=== PATIENT | female | born 1975 | race Caucasian/White ===

== ENCOUNTER 2022-06-09 06:06 | Day surgery (SDC) | payer OTHER, SELFPAY ==
[2022-06-09] VITALS (13 sets, daily range): BP systolic 111–165; BP diastolic 87–98; PULSE 68–83; RESP 14–18; TEMP 36.1–36.6; O2SAT 91–100
[2022-06-09] MEDS: gabapentin 300 mg Capsule PO (06:30)
[2022-06-09] MEDS: CELEcoxib 200 mg Capsule 400 MG PO (06:30)
[2022-06-09] MEDS: sodium chloride 0.9% 1,000 ML 30 ML IV (06:31)
[2022-06-09] MEDS: phenazopyridine 100 mg Tablet 200 MG PO (06:31)
[2022-06-09] MEDS: scopolamine 1.5 Patch 1 PATCH TRANSDERMA (06:31)
--- NOTE | 2022-06-09 06:37 | P.ANESASSM_ITS ---
Pre-Anesthetic Assessment Height/Weight: Height 1.6 m Weight 89.358 kg Temp Pulse Resp BP Pulse Ox O2 Del Method 97.9 F 83 18 165/96 96 06/09/22 06:22 06/09/22 06:22 06/09/22 06:22 06/09/22 06:22 06/09/22 06:22 06/09/22 06:22 Preop Diagnosis: left ovarian cyst Operation Date: 06/09/22 07:00 Proposed Procedures p Laparoscopic cystectomy 78413, possible left salpingo-oophorectomy 42843, possible right salpingectomy N83.8(Not Applicable) - Soco Forbes MD s Laparoscopic Salpingo Oophorectomy(Left) - Soco Forbes MD s Possible Right Laparoscopic Salpingectomy(Right) - Soco Forbes MD Familial anesthetic complications: None Was Beta Gaby taken within 24 hours: N/A Was Clonidine taken within 24 hours: N/A Last intake: Intake Last Liquid Date 06/08/22 Last Liquid Time 23:59 Last Solid Date 06/08/22 Last Solid Time 23:59 Social Alcohol (Social) and No tobacco Exam alert, oriented x 3, clear to auscultation bilaterally and regular rate & rhythm Airway Submandibular: within normal limits Cervical ROM: within normal limits Mallampati: Class III Dentition: full History/ROS No significant history except as noted and No significant complaints Pulmonary None reported CV/HEM None reported None reported Hepatic None reported GI None reported Metabolic Morbid Obesity and Thyroid Disease [facility] [place] Lupus Neuropsych Neuropathy Anesthetic Plan ASA status: 2 Anesthesia: Anesthesia Evaluation and General Risk of > 500 ml blood loss (7ml/kg in children): No Medications/Allergies Home Medications Medication Instructions Recorded Confirmed Last Taken Type losartan 25 mg tablet 25 mg PO DAILY 12/13/21 06/06/22 06/08/22 History multivitamin 1 tab PO DAILY 12/13/21 06/06/22 06/05/22 History hydroxychloroquine 200 mg tablet 200 mg PO BID #60 tabs 03/14/22 06/06/22 06/08/22 Rx hydrocodone 2.5 mg-acetaminophen 1 tab PO BID PRN Pain 05/30/22 06/06/22 Unknown History 325 mg tablet hydrocodone 5 mg-acetaminophen 325 1 tab PO Q4H #30 tabs 06/09/22 Unknown Rx mg tablet Allergies Allergy/AdvReac Type Severity Reaction Status Date / Time Penicillins Allergy Severe anaphlaxsis Verified 06/06/22 11:36 amoxicillin Allergy Unknown Verified 06/06/22 11:36 Sulfa (Sulfonamide Allergy ALGY-Rash Verified 06/06/22 11:36 Antibiotics) flu shot Allergy Intermediate hives Uncoded 05/30/22 09:46 Current Medications Generic Name Dose Route Start Last Admin Trade Name Tristan PRN Reason Stop Dose Admin Sodium Chloride 1,000 mls @ 30 mls/hr 06/09/22 06:15 06/09/22 06:31 Sodium Chloride 0.9% IV 06/10/22 06:14 30 mls/hr .Q24H DANIELLE Administration PFSH Anesthesia Medical History (Updated 05/31/22 @ 17:00 by Soco Forbes MD) Migraines Pain in joints Surgical History (Updated 05/31/22 @ 17:00 by Soco Forbes MD) History of hysterectomy History of tonsillectomy and adenoidectomy Family History Other Hypertension Denies family history of Colon cancer Ovarian cancer Diabetes Heart disease Hypercholesteremia Breast cancer Uterine cancer Thyroid disease Stroke Data Anesthesia Cardiac Studies: No Data to Display
--- NOTE | 2022-06-09 07:13 | W.PM.OPSUD ---
Surgery/Procedure H&P Update DATE OF PROCEDURE: June 09, 2022 DATE H&P PERFORMED: 05/30/22 H&P UPDATE INFORMATION: I have reviewed H&P completed within last 30 days, I have examined patient prior to procedure and No changes to prior documentation PREOP DIAGNOSIS: left ovarian cyst PLANNED PROCEDURE: Operation Date: 06/09/22 07:00 Proposed Procedures p Laparoscopic cystectomy 90249, possible left salpingo-oophorectomy 28935, possible right salpingectomy N83.8(Not Applicable) - Soco Forbes MD s Laparoscopic Salpingo Oophorectomy(Left) - Soco Forbes MD s Possible Right Laparoscopic Salpingectomy(Right) - Soco Forbes MD
[2022-06-09] MEDS: acetaminophen 1,000 MG/100 ML PIGGYBACK 400 MG IV (07:18)
[2022-06-09] MEDS: ceFAZolin 2,000 MG in sodium chloride 0.9% (plus) 50 ML 100 MG IV (07:19)
--- NOTE | 2022-06-09 09:14 | P.OP_ITS ---
Operative Report Date of procedure: June 09, 2022 Pre-op diagnosis: Preop Diagnosis left ovarian cyst Post-op diagnosis: same Post-op findings: medium sized left ovarian cyst. Fimbria only remaining after previous tubal. fimbria removed Procedure done: laparoscopic removal of left ovary. bilateral fimbriectomy Specimens removed/disposition: left ovary and bilateral fimbria to pathology Surgeon: Soco Forbes Anesthesia: General Estimated blood loss (mL): 5 IV fluids (mL): 900 Urine output (mL): 350 Complications: endo bag broke during removal Condition: stable Disposition: PACU Procedure: The patient was taken to the operating room where general anesthesia was administered and found to be adequate. She was prepped and draped in the normal sterile fashion in the dorsal lithotomy position in [facility]. A Moore catheter was placed. A sponge-stick was placed into the vagina. The gloves were changed and attention was turned to the laparoscopic portion of the case. A 5 mm infraumbilical incision was made. The 5 mm trocar was placed using the easy view trocar. Intra-abdominal placement was confirmed and CO2 gas was used to insufflate the abdomen. Using direct visualization and illumination of the abdominal wall, two 5 mm incisions were made low and lateral. One on the left and one on the right. The 5mm trochars were then placed under direct visualization. Using the uterine manipulator and the grasper, the left fimbria and ovary were elevated. Using the laparoscopic cautery, the IP ligament was cauterized, cut and ovary was removed. Attention was then turned to te right tube and ovary. The right ovary was grossly normal. There was a partubal cyst attached to the fimbria. The cautery was used to cauterize the meso salpinx and remove the piece of tube. The left lateral incision was extended and a 12 mm trocar placed. The endobag was inserted. Both specimens were placed into the endobag. The bag was brought through the incision. The bag ruptured during removal. An Allis clamp was used to grasp the ovary, which remained in the incision. The right tube fell onto the floor when the bag ruptured. It was retrieved and sent to pathology. There was excellent hemostasis post removal of the specimens. All instruments were removed. The abdomen was desufflated. The incisions were closed with 4-0 Vicryl. 10 ml of 1/2% bupivicaine was used around the incisions. The patient tolerated the procedure well. Sponge lap and needle counts were correct x3. She was taken to the recovery room in stable condition.
--- NOTE | 2022-06-09 09:18 | PM.DCS ---
Discharge Providers Date of Admission: 06/09/22 Date of Discharge: June 09, 2022 Attending Provider at Admission: Dr. Forbes Attending Provider at Discharge: Soco Forbes MD Primary Care Provider: Rupa Gama PA-C Reason for Visit Reason for Visit: N83.8 Hospital Course Hospital Course The patient was admitted for surgery. She did well postoperatively and was ready for discharge after surgery. Physical Exam Urinary Catheter Management: Moore: Cath Placed During This Visit: yes, but has since been removed by the nurse Urinary Catheter Date of Insertion: 06/09/22 Urinary Catheter Time of Insertion: 07:55 Date Urinary Catheter Removed: 06/09/22 Time Urinary Catheter Discontinued: 08:55 Discharge Data Studies Completed and Pending Pending at discharge Category Date Time Status Urine Culture Routine Lab 06/09/22 07:48 Received Pathology: Surgical [PTH] Routine Pth 06/09/22 08:54 Ordered Vitals Last Vital Signs Temp 97.9 F 06/09/22 06:22 Pulse 83 06/09/22 06:22 Resp 18 06/09/22 06:22 BP 165/96 06/09/22 06:22 Pulse Ox 96 06/09/22 06:22 O2 Del Method 06/09/22 06:22 Discharge Plan Discharge Patient Disposition: Home Condition: Stable Prescriptions: New hydrocodone-acetaminophen 5-325 mg tablet 1 tab PO Q4H Qty: 30 0RF Continued hydroxychloroquine 200 mg tablet 200 mg PO BID Qty: 60 4RF hydrocodone-acetaminophen 2.5-325 mg tablet 1 tab PO BID PRN (Reason: Pain) losartan 25 mg tablet 25 mg PO DAILY multivitamin Tablet 1 tab PO DAILY Discharge Orders: Discharge Order (Routine); Ordered 06/09/22 Ordered By: Soco Forbes Referrals: Soco Forbes MD [Physician] - 06/16/22 8:00 am Patient Instructions: Hydrocodone/Acetaminophen (By mouth), Post Anesthesia Care Discharge Attestations Time Spent in Discharge Care*: less than 30 min Quality Metrics Clinical Quality Measures [ No reported AMI, CVA or VTE this stay] Coding Level of Care Code Acute Chg FW DC note
[2022-06-09] MEDS: fentaNYL 50 mcg/mL INJ 2mL IVP (09:48)
[2022-06-09] MEDS: HYDROcodone-acetaminophen 5-325 mg Tablet 1 TAB PO (10:18)
--- NOTE | 2022-06-09 16:12 | ANE.PACU2 ---
Inpatient post-anesthesia follow up: Airway intact: Yes Vital signs: Temperature 97.0 F Pulse Rate 80 Respiratory Rate 18 Blood Pressure 130/98 Pulse Oximetry 97 Oxygen Delivery Me thod Room Air Oxygen Flow Rate 6 Fraction of Inspir ed Oxygen Hydration adequate: Yes Nausea and vomiting: No Pain level: 3 Mental status: Baseline
== END 2022-06-09 10:55 | disposition home or self-care (01) ==
PROVIDERS: PCP Physician Assistant; Visit Provider Obstetrics & Gynecology
PROC: (CPT 58662; principal; 2022-06-09 07:00)
PROC: (CPT 58661; 2022-06-09 07:00)
DX: N83.02 Follicular cyst of left ovary (principal); E66.01 Morbid (severe) obesity due to excess calories; Z68.34 Body mass index [BMI] 34.0-34.9, adult
CPT/HCPCS: 58661; 81025; 87086; 88305; J0131; J0690; J1100; J1885; J2250; J2370; J2704; J2710; J3010; J3490; J7030